=== PATIENT | male | born 1940 | race Caucasian/White ===

== ENCOUNTER 2023-05-08 13:27 | Emergency (ER) | payer MEDICARE ==
[2023-05-08] MEDS ORDERED: Sodium Chloride 0.9% 10 ML Syringe FLUSH PRN (13:41)
[2023-05-08] MEDS: Sodium Chloride 0.9% 1,000 ML IV ONE (13:46)
[2023-05-08 13:48] LABS: BASOPHILS ABSOLUTE AUTO 0.01 K/uL (0.02-0.10); BASOPHILS PERCENT AUTO 0.4 % (0.0-0.5); HEMATOCRIT 35.3 % (40.0-54.0); HEMOGLOBIN 11.9 g/dL (13.0-18.0); LYMPHOCYTES ABSOLUTE AUTO 0.57 K/uL (1.50-4.00); LYMPHOCYTES PERCENT AUTO 22.3 % (20.0-40.0); MEAN CORPUSCULAR HEMOGLOBIN 30.5 pg (27.0-32.0); MEAN CORPUSCULAR HGB CONC 33.7 g/dL (31.0-35.0); MEAN CORPUSCULAR VOLUME 91 fL (76-96); MEAN PLATELET VOLUME 10.6 fL (6.0-10.0); MONOCYTES PERCENT AUTO 23.4 % (3.0-10.0); NEUTROPHILS ABSOLUTE AUTO 1.38 K/uL (2.00-7.50); NEUTROPHILS PERCENT AUTO 53.9 % (45.0-70.0); RED CELL DISTRIBUTION WIDTH 13.2 % (11.0-16.0); WHITE BLOOD CELL COUNT,WBC 2.6 K/uL (4.0-11.0)
[2023-05-08 14:17] LABS: PLATELET COUNT,PLT 96 K/uL (150-400)
[2023-05-08 14:19] LABS: ALBUMIN 3.5 g/dL (3.4-5.0); ANION GAP 14.4 mmol/L (5.0-15.0); BILIRUBIN TOTAL 0.7 mg/dL (0.0-1.0); BUN/CREATININE RATIO 12.3 (6-25); C-REACTIVE PROTEIN 30.6 mg/L (0.0-3.0); CALCIUM 8.7 mg/dL (8.5-10.1); CARBON DIOXIDE,CO2 25.7 mmol/L (21.0-32.0); CREATININE 1.95 mg/dL (0.70-1.30); EST CRCL DRUG DOSING (CG) 32.06 mL/min; POTASSIUM,K 4.1 mmol/L (3.5-5.1)
[2023-05-08 14:47] LABS: INFLUENZA A NAA NEGATIVE (NEGATIVE); INFLUENZA B NAA NEGATIVE (NEGATIVE)
[2023-05-08 14:51] LABS: CORONAVIRUS COVID-19 NAA POSITIVE (NEGATIVE)
[2023-05-08 17:01] VITALS: BP 129/78; PULSE 61
== END 2023-05-08 15:26 | disposition home or self-care (01) ==
LOC: LB.ED 13:27
DX: U07.1 COVID-19 (principal); I10 Essential (primary) hypertension; Z79.899 Other long term (current) drug therapy; Z88.5 Allergy status to narcotic agent
CPT/HCPCS: 0240U; 36415; 71045; 80053; 83605; 85025; 86140; 93005; 99285; J7030

== ENCOUNTER 2023-06-15 21:38 | Emergency (ER) | payer MEDICARE ==
[2023-06-15] MEDS ORDERED: Silver Nitrate Applicator Each TOP ONE (21:45)
[2023-06-15 23:19] VITALS: BP 177/92; PULSE 59
== END 2023-06-15 22:55 | disposition home or self-care (01) ==
LOC: LB.ED 21:38
DX: R04.0 Epistaxis (principal); I10 Essential (primary) hypertension; Z88.5 Allergy status to narcotic agent; Z79.899 Other long term (current) drug therapy
CPT/HCPCS: 30901; 30903; 99283

== ENCOUNTER 2023-10-29 12:25 | Emergency (ER) | payer MEDICARE ==
[2023-10-29] MEDS ORDERED: Sodium Chloride 0.9% 10 ML Syringe FLUSH PRN (12:30)
[2023-10-29] MEDS: Sodium Chloride 0.9% 1,000 ML IV ONE (12:47)
[2023-10-29 12:58] LABS: BASOPHILS ABSOLUTE AUTO 0.01 K/uL (0.02-0.10); BASOPHILS PERCENT AUTO 0.3 % (0.0-0.5); EOSINOPHILS ABSOLUTE AUTO 0.05 K/uL (0.04-0.40); EOSINOPHILS PERCENT AUTO 1.3 % (1.0-5.0); HEMATOCRIT 34.6 % (40.0-54.0); LYMPHOCYTES ABSOLUTE AUTO 1.03 K/uL (1.50-4.00); LYMPHOCYTES PERCENT AUTO 26.3 % (20.0-40.0); MEAN CORPUSCULAR HEMOGLOBIN 29.6 pg (27.0-32.0); MEAN CORPUSCULAR HGB CONC 34.7 g/dL (31.0-35.0); MEAN CORPUSCULAR VOLUME 85 fL (76-96); MEAN PLATELET VOLUME 10.2 fL (6.0-10.0); MONOCYTES ABSOLUTE AUTO 0.32 K/uL (0.20-0.80); MONOCYTES PERCENT AUTO 8.2 % (3.0-10.0); NEUTROPHILS PERCENT AUTO 63.9 % (45.0-70.0); PLATELET COUNT,PLT 109 K/uL (150-400); RED BLOOD CELL COUNT 4.06 M/uL (4.50-6.50); RED CELL DISTRIBUTION WIDTH 12.9 % (11.0-16.0); WHITE BLOOD CELL COUNT,WBC 3.9 K/uL (4.0-11.0)
[2023-10-29 13:15] LABS: PROTHROMBIN TIME 10.5 sec (9.0-11.5)
[2023-10-29 13:17] VITALS: BP 141/82; PULSE 53
[2023-10-29 13:20] LABS: TROPONIN I HIGH SENSITIVITY 9.5 pg/ml (<=60.4)
[2023-10-29 13:31] LABS: A/G RATIO 1.1 (0.8-2.0); ALBUMIN 3.3 g/dL (3.4-5.0); BUN/CREATININE RATIO 14.2 (6-25); CALCIUM 8.5 mg/dL (8.5-10.1); CARBON DIOXIDE,CO2 26.8 mmol/L (21.0-32.0); CREATININE 1.76 mg/dL (0.70-1.30); EST CRCL DRUG DOSING (CG) 35.52 mL/min; POTASSIUM,K 4.8 mmol/L (3.5-5.1); PROTEIN TOTAL,TP 6.2 g/dL (6.4-8.2)
== END 2023-10-29 14:00 | disposition home or self-care (01) ==
LOC: LB.ED 12:25
DX: R55 Syncope and collapse (principal); I10 Essential (primary) hypertension; R00.1 Bradycardia, unspecified; Z88.8 Allergy status to other drugs, medicaments and biological substances; Z79.899 Other long term (current) drug therapy
CPT/HCPCS: 36415; 71045; 80053; 82947; 83880; 84484; 85025; 85610; 85730; 93005; 96360; 99284-25; A0425; A0429; J7030

== ENCOUNTER 2024-04-18 10:30 | Emergency (ER) | payer MEDICARE ==
[2024-04-18] MEDS: Sodium Chloride 0.9% 1,000 ML IV SCH (11:15)
[2024-04-18] MEDS ORDERED: Sodium Chloride 0.9% 10 ML Syringe FLUSH PRN (11:34)
[2024-04-18 11:45] LABS: HEMATOCRIT 36.9 % (40.0-54.0); HEMOGLOBIN 12.4 g/dL (13.0-18.0); MEAN CORPUSCULAR HEMOGLOBIN 29.6 pg (27.0-32.0); MEAN CORPUSCULAR HGB CONC 33.6 g/dL (31.0-35.0); MEAN PLATELET VOLUME 10.8 fL (6.0-10.0); RED BLOOD CELL COUNT 4.19 M/uL (4.50-6.50); RED CELL DISTRIBUTION WIDTH 13.3 % (11.0-16.0); WHITE BLOOD CELL COUNT,WBC 4.1 K/uL (4.0-11.0)
[2024-04-18 11:57] LABS: ALBUMIN 3.5 g/dL (3.4-5.0); ANION GAP 12.1 mmol/L (5.0-15.0); BUN/CREATININE RATIO 13.2 (6-25); CALCIUM 8.8 mg/dL (8.5-10.1); CREATININE 1.74 mg/dL (0.70-1.30); EST CRCL DRUG DOSING (CG) 35.31 mL/min; MAGNESIUM 1.9 mg/dL (1.8-2.4); PHOSPHORUS 2.8 mg/dL (2.5-4.9); POTASSIUM,K 4.1 mmol/L (3.5-5.1); PROTEIN TOTAL,TP 6.9 g/dL (6.4-8.2)
[2024-04-18 14:21] VITALS: BP 171/101; PULSE 53
== END 2024-04-18 13:40 | disposition home or self-care (01) ==
LOC: LB.ED 10:30
DX: E86.0 Dehydration (principal); I10 Essential (primary) hypertension; Z88.8 Allergy status to other drugs, medicaments and biological substances; Z79.899 Other long term (current) drug therapy
CPT/HCPCS: 36415; 80053; 83735; 84100; 84484; 85027; 85379; 93005; 93242; 96360; 96361; 99284-25; J7030

== ENCOUNTER 2025-07-03 11:28 | Observation (INO) | payer MEDICARE ==
[2025-07-03] MEDS ORDERED: Sodium Chloride 0.9% 10 ML Syringe FLUSH PRN (11:37)
[2025-07-03 11:57] LABS: BASOPHILS ABSOLUTE AUTO 0.02 K/uL (0.02-0.10); BASOPHILS PERCENT AUTO 0.4 % (0.0-0.5); EOSINOPHILS ABSOLUTE AUTO 0.06 K/uL (0.04-0.40); EOSINOPHILS PERCENT AUTO 1.1 % (1.0-5.0); LYMPHOCYTES ABSOLUTE AUTO 1.60 K/uL (1.50-4.00); LYMPHOCYTES PERCENT AUTO 30.1 % (20.0-40.0); MEAN PLATELET VOLUME 11.1 fL (6.0-10.0); MONOCYTES ABSOLUTE AUTO 0.39 K/uL (0.20-0.80); MONOCYTES PERCENT AUTO 7.3 % (3.0-10.0); NEUTROPHILS ABSOLUTE AUTO 3.24 K/uL (2.00-7.50); NEUTROPHILS PERCENT AUTO 61.1 % (45.0-70.0); PLATELET COUNT,PLT 123 K/uL (150-400); RED BLOOD CELL COUNT 4.13 M/uL (4.50-6.50); RED CELL DISTRIBUTION WIDTH 12.8 % (11.0-16.0); WHITE BLOOD CELL COUNT,WBC 5.3 K/uL (4.0-11.0)
[2025-07-03 12:18] LABS: INR 1.0 (1.0-3.5); PTT,PARTIAL THROMBOPLSTIN TIME 19.5 SECONDS (24.4-33.2)
[2025-07-03 12:21] LABS: ALANINE AMINOTRANSFERASE,ALT 15.0 U/L (12-78); ASPARTATE AMNIOTRANSFERASE,AST 9.0 U/L (15-37); BILIRUBIN TOTAL 0.8 mg/dL (0.0-1.0); CARBON DIOXIDE,CO2 24.7 mmol/L (21.0-32.0); CHLORIDE,CL 107.0 mmol/L (98-107); POTASSIUM,K 4.3 mmol/L (3.5-5.1); PROTEIN TOTAL,TP 6.6 g/dL (6.4-8.2); SODIUM,NA 143.0 mmol/L (136-145); TROPONIN I HIGH SENSITIVITY 11.1 pg/ml (<=60.4)
[2025-07-03 12:36] LABS: A/G RATIO 1.1 (0.8-2.0); BLOOD UREA NITROGEN,BUN 26.0 mg/dL (8-26); CREATININE 1.98 mg/dL (0.70-1.30); EST CRCL DRUG DOSING (CG) 30.48 mL/min; ESTIMATED GFR 33.0 mL/min (>60); GLUCOSE RANDOM 163.0 mg/dL (74-100)
[2025-07-04 11:37] VITALS: BP 148/92; PULSE 65
== END 2025-07-04 10:23 | disposition home or self-care (01) ==
LOC: LB.ED 11:28 → LB.MS 14:05
PROVIDERS: ADMIT Surgery; ATTEND Surgery
DX: R55 Syncope and collapse (principal); I10 Essential (primary) hypertension; Z79.899 Other long term (current) drug therapy
CPT/HCPCS: 36415; 70450; 71045; 80053; 84484; 85025; 85379; 85610; 85730; 93005; 93010; 93246; 99222; 99238; A0425; A0429; A9270-GY; G0378; J7030